=== PATIENT | male | born 1970 | race Caucasian/White ===

== ENCOUNTER 2016-06-11 19:12 | Emergency (ER) | payer BC ==
[~2016-06-11] VITALS: Ht 182.9 cm; Wt 88.6 kg
[2016-06-11 19:19] VITALS: Ht 182.9 cm; Wt 88.6 kg
[2016-06-11] MEDS ORDERED: SODIUM CHLORIDE 0.9% 1000ML 1,000 ML IV STA (20:37)
[2016-06-11] MEDS ORDERED: SODIUM CHLORIDE 0.9% 1000ML 1,000 ML IV ONE (20:37)
--- NOTE | 2016-06-11 20:43 | EMERGENCY ROOM VISIT NOTE ---
History Report prepared by Debra: Pradeep Munroe Under the Supervision of: Dr. Pradeep Koch M.D. First contact with patient: 20:29 Chief Complaint: FOOD BOLUS Stated Complaint: FOOD LODGED IN THROAT SINCE 5AM Nursing Triage Summary: hot dog stuck in throat since 0500 was able to swallow so he ate a banana at noon now it seems worse. History of Present Illness The patient is a 45 year old male who presents to the Emergency Room with complaints of an episode of food bolus occurring about 15 hours ago. He notes he was eating a hotdog with eggs and it became stuck after only a few bites. He tried eating a banana to force it down but this made it worse. He notes he gets short of breath when phlegm builds up and gags every 10 minutes. He adds he gaged up some hotdog about 7 hours ago. The patient reports he has had a scope and swallowing test done 2 years ago at [facility], and it was noted that his muscles in his esophageal region become "lazy" causing food to become stuck. He denies taking any blood thinners. No trauma or injury. No chest pain. No fever or chills. No recent illness. Source of History: patient Onset: about 15 hours ago Position: throat Quality: other (food bolus) Timing: other (episode) Modifying Factors (Relieving): other (eating a banana) Associated Symptoms: + SOB Review of Systems See HPI for pertinent positives & negatives. A total of 10 systems reviewed and were otherwise negative. Past Medical & Surgical Old medical records were reviewed. Nurse's notes were reviewed and I agree with. He is a previous esophageal problems but never been acutely scoped for this Family History No pertinent family history stated. Social History Smoking Status: Never Smoker Drug Use: none Marital Status: Current/Historical Medications Scheduled Finasteride (Propecia ), 1 MG PO QAM Multivitamin (Multivitamin), 1 TAB PO QAM Trazodone HCl (Trazodone HCl), 150 MG PO HS Scheduled PRN Ibuprofen (Advil), 400 MG PO Q6 PRN for Pain Allergies Coded Allergies: Penicillins (Unverified Allergy, Unknown, UNKNOWN, 06/11/16) Physical Exam Vital Signs Date Time Temp Pulse Resp B/P Pulse Ox O2 Delivery O2 Flow Rate FiO2 06/12/16 00:00 36.6 72 16 142/105 98 06/11/16 23:50 36.5 76 16 162/103 98 06/11/16 23:40 36.5 78 20 142/98 96 06/11/16 23:30 36.4 80 16 137/98 94 Room Air 80 06/11/16 23:25 36.5 80 20 153/95 96 Room Air 06/11/16 23:15 36.4 83 24 128/109 95 Room Air 06/11/16 23:05 36.5 79 16 143/90 98 Nasal Cannula 2 06/11/16 22:55 87 16 141/98 99 Nasal Cannula 2 06/11/16 22:49 36.1 90 16 138/92 98 Mask 10 06/11/16 21:00 84 16 140/98 97 Room Air 06/11/16 19:19 36.7 101 18 147/97 97 Room Air Physical Exam General: Non ill appearing middle aged male appearing in no acute distress except for occasionally bringing up phlegm and becoming unable to swallow. No respiratory distress. HEENT: Normal cephalic atraumatic. Pupils are equal round and reactive to light. Extraocular movements are intact. Oropharynx is pink with moist mucous membranes. No swelling of the mouth lips or tongue. Neck: Supple with a midline trachea. No meningeal signs or stiffness, no JVD or bruits. No Stridor. Chest: Clear to auscultation bilaterally. No wheezes or rhonchi. No increased work of breathing. Heart: regular rate and rhythm. Abdomen: Soft nontender, nondistended without rebound guarding or rigidity. Extremities: No cyanosis clubbing or edema. No calf tenderness or assymetry Spine/Back. Non tender to palpation. No CVA tenderness Skin: Good turgor without rashes. Neurologic exam: Cranial nerves two through 12 are intact. Motor and sensation are intact and symmetrical throughout. Medical Decision & Procedures Laboratory Results 06/11/16 20:55 Red Blood Count 5.17, Mean Corpuscular Volume 89.2, Mean Corpuscular Hemoglobin 32.7, Mean Corpuscular Hemoglobin Concent 36.7, Mean Platelet Volume 9.1, Neutrophils (%) (Auto) 66.8, Lymphocytes (%) (Auto) 23.2, Monocytes (%) (Auto) 9.6, Eosinophils (%) (Auto) 0.1, Basophils (%) (Auto) 0.1, Neutrophils # (Auto) 6.48, Lymphocytes # (Auto) 2.25, Monocytes # (Auto) 0.93, Eosinophils # (Auto) 0.01, Basophils # (Auto) 0.01 06/11/16 20:55 Test 06/11/16 20:55 White Blood Count 9.70 K/uL (4.8-10.8) Red Blood Count 5.17 M/uL (4.7-6.1) Hemoglobin 16.9 g/dL (14.0-18.0) Hematocrit 46.1 % (42-52) Mean Corpuscular Volume 89.2 fL (80-100) Mean Corpuscular Hemoglobin 32.7 pg (25-34) Mean Corpuscular Hemoglobin Concent 36.7 g/dl (32-36) Platelet Count 232 K/uL (130-400) Mean Platelet Volume 9.1 fL (7.4-10.4) Neutrophils (%) (Auto) 66.8 % Lymphocytes (%) (Auto) 23.2 % Monocytes (%) (Auto) 9.6 % Eosinophils (%) (Auto) 0.1 % Basophils (%) (Auto) 0.1 % Neutrophils # (Auto) 6.48 K/uL (1.4-6.5) Lymphocytes # (Auto) 2.25 K/uL (1.2-3.4) Monocytes # (Auto) 0.93 K/uL (0.11-0.59) Eosinophils # (Auto) 0.01 K/uL (0-0.5) Basophils # (Auto) 0.01 K/uL (0-0.2) RDW Standard Deviation 41.2 fL (36.4-46.3) RDW Coefficient of Variation 12.7 % (11.5-14.5) Immature Granulocyte % (Auto) 0.2 % Immature Granulocyte # (Auto) 0.02 K/uL (0.00-0.02) Anion Gap 11.0 mmol/L (3-11) Est Creatinine Clear Calc Drug Dose 87.1 ml/min Estimated GFR () 85.3 Estimated GFR (Non- 73.6 BUN/Creatinine Ratio 11.9 (10-20) Calcium Level 9.3 mg/dl (8.5-10.1) Laboratory studies as stated above per my review. Medications Administered Medications (Trade) Dose Ordered Sig/Asha Route Start Time Stop Time Status Last Admin Dose Admin Sodium Chloride 1,000 ml @ 999 mls/hr Q1H1M STAT IV 06/11/16 20:37 06/11/16 21:37 DC 06/11/16 20:37 999 MLS/HR Sodium Chloride (Nss 1000ml) 1,000 ml @ 150 mls/hr Q6H40M ONCE IV 06/11/16 20:37 06/12/16 03:16 06/11/16 20:37 150 MLS/HR Glucagon (Glucagon Inj) 1 mg NOW STAT IV 06/11/16 20:48 06/11/16 20:49 DC 06/11/16 20:48 1 MG ED Course 2029: Past medical records reviewed. The patient was evaluated in room C3, and a complete history and physical examination were performed. 2036: Ordered NSS 1,000 ml @ 150 mls/hr IV, and NSS 1,000 ml @ 999 mls/hr IV. 2046: I spoke with Dr. Garnica about the patient's case and it was recommended that I give glucagon. Dr. Garnica will see the patient at bedside. 2047: Ordered Glucagon 1 mg IV. 2244: Upon reevaluation, the patient is doing well. I discussed the results and treatment plan with the patient. He verbalized agreement of the treatment plan. The patient was discharged home. Medical Decision Differentials include food bolus, GERD, infection, and electrolyte or metabolic abnormality. This patient comes in as described above he has symptoms very consistent with a food bolus/impaction. This is been going on for about 17 hours. He looks well except for when I c had him try to swallow water and it immediately comes back up and he is also spitting intermittently. He appears in no respiratory distress. IV access established, blood work was ordered and ordered glucagon 1 mg IV. I also consulted Dr. Garnica. He did call the endoscopy lab and promptly came in and took the patient endoscopy lab for scoping and removal of the food bolus. The patient has no acute electrolyte or metabolic abnormalities. He was hydrated with IV normal saline and He was transferred to the endoscopy suite Consults Time Called: 2044 Consulting Physician: Dr. Garnica Returned Call: [address] Garnica about the patient's case and it was recommended that I give glucagon. Dr. Garnica will see the patient at bedside. Impression Primary Impression: Food impaction of esophagus Scribe Attestation The scribe's documentation has been prepared under my direction and personally reviewed by me in its entirety. I confirm that the note above accurately reflects all work, treatment, procedures, and medical decision making performed by me. Departure Information Dispostion Home / Self-Care Patient Instructions My [facility]
[2016-06-11] MEDS ORDERED: GLUCAGON FOR INJ 1 MG VIAL IV STA (20:48)
[2016-06-11 21:00] VITALS: O2SAT 97
[2016-06-11] MEDS ORDERED: PRSC1 PO (21:07)
[2016-06-11] MEDS ORDERED: MULT-506 PO (21:07)
[2016-06-11] MEDS ORDERED: DSY/150 PO (21:07)
[2016-06-11] MEDS ORDERED: IBUP-1050 PO (21:07)
[2016-06-11 21:08] LABS: BASO % 0.1 %; BASO ABS # 0.01 K/uL (0-0.2); COMPLETE YES; EOS % 0.1 %; HEMATOCRIT 46.1 % (42-52); IG% 0.2 %; LYMPH % 23.2 %; LYMPH ABS # 2.25 K/uL (1.2-3.4); MEAN CELL VOLUME 89.2 fL (80-100); MEAN CORPUSCULAR HEMOGLOBIN 32.7 pg (25-34); MEAN CORPUSCULAR HGB CONC 36.7 g/dl (32-36); MEAN PLATELET VOLUME 9.1 fL (7.4-10.4); MONO % 9.6 %; NEUT % 66.8 %; PLATELET COUNT 232 K/uL (130-400); RED BLOOD COUNT 5.17 M/uL (4.7-6.1)
[2016-06-11 21:25] LABS: BUN/CREATININE RATIO 11.9 (10-20); CALCIUM 9.3 mg/dl (8.5-10.1); CREATININE 1.2 mg/dl (0.60-1.40); POTASSIUM 3.7 mmol/L (3.5-5.1)
[2016-06-11] MEDS ORDERED: FLUMAZENIL 0.1 MG/1 ML 10 ML VIAL IV PRN (21:45)
[2016-06-11] MEDS ORDERED: LABETALOL HCL IV 5 MG/ML 20ML IV PRN (21:45)
[2016-06-11] MEDS ORDERED: MEPERIDINE HCL 25 MG/ML CARP IV PRN (21:45)
[2016-06-11] MEDS ORDERED: FENTANYL CITRATE INJ 50 MCG/1 ML 2 ML VIAL IV PRN (21:45)
[2016-06-11] MEDS ORDERED: HYDROmorphone INJ 2 MG/ML SYR/VIAL IV PRN (21:45)
[2016-06-11] MEDS ORDERED: ONDANSETRON INJ 2 MG/ML 2 ML VIAL IV PRN ×2 (21:45→23:00)
[2016-06-11] MEDS ORDERED: ATROPINE SULFATE 0.1 MG/ML 5ML SYR IV PRN (21:45)
[2016-06-11] MEDS ORDERED: EpHEDrine SULFATE INJ 50 MG/ML AMP IV PRN (21:45)
[2016-06-11] MEDS ORDERED: NALOXONE HCL 0.4 MG/1 ML VIAL/CARP IV PRN (21:45)
[2016-06-11] MEDS ORDERED: PHENYLEPHRINE 100MCG/ML 5ML SYR IV PRN (21:45)
[2016-06-11] MEDS ORDERED: MIDAZOLAM HCL 1 MG/ML 2ML VIAL ONE (21:49)
--- NOTE | 2016-06-11 21:49 | Medical Consult ---
Consultation Date of Consultation: Jun 11, 2016. Attending Physician: DR HILARY ERNST Reason for Consultation: FOOD IMPACTION History of Present Illness The patient is a 45 year old male who presents ED to the Emergency Room with complaints of an episode of food bolus occurring about 15 hours ago (0500). He notes he was eating a hotdog with eggs and it became stuck after only a few bites. He notes he gets short of breath when phlegm builds up and gags every 10 minutes. He adds that he gaged up some hotdog about 7 hours ago. He had a prior EGD for intermitant dysphagia in [address] Martínez, empiric dilation was performed. He reports having intermitant dysphagia over the past few years, last evaluation in 2011. Past Medical/Surgical History GERD Hypertension Insomnia Social History Smoking Status: Never Smoker Smokeless Tobacco Use: No Alcohol Use: socially Drug Use: none Marital Status: Occupation Status: employed Allergies Coded Allergies: Penicillins (Unverified Allergy, Unknown, UNKNOWN, 06/11/16) Home Medications Reported Home Medications Medications Dose Route/Sig Max Daily Dose Days Date Category Multivitamin (Multivitamins) Tab 1 Tab PO QAM 06/11/16 Reported Advil (Ibuprofen) 200 Mg Tab 400 Mg PO Q6 PRN 06/11/16 Reported Trazodone HCl 150 Mg Tab 150 Mg PO HS 06/11/16 Reported Propecia (Finasteride) 1 Mg Tab 1 Mg PO QAM 06/11/16 Reported Current Inpatient Medications Current Inpatient Medications Medications (Trade) Dose Ordered Sig/Asha Route Start Time Stop Time Status Last Admin Dose Admin Sodium Chloride 1,000 ml @ 999 mls/hr Q1H1M STAT IV 06/11/16 20:37 06/11/16 21:37 06/11/16 20:37 999 MLS/HR Sodium Chloride (Nss 1000ml) 1,000 ml @ 150 mls/hr Q6H40M ONCE IV 06/11/16 20:37 06/12/16 03:16 06/11/16 20:37 150 MLS/HR Review of Systems Constitutional: No chills, No fatigue, No weight loss Eyes: No eye pain ENT: No unusual epistaxis Respiratory: No shortness of breath, No sputum Cardiovascular: No edema, No orthopnea, No palpitations Abdomen: No GI bleeding, No diarrhea, No nausea Musculoskeletal: No muscle pain, No swelling Genitourinary - Male: No dysuria, No lesions, No urinary hesitancy Psychiatric: No anhedonism, No anxiety, No substance abuse Endocrine: No excessive thirst Hematologic / Lymphatic: No clotting problems, No problem reported Integumentary: No bleeding, No itch Physical Exam Date Time Temp Pulse Resp B/P Pulse Ox O2 Delivery O2 Flow Rate FiO2 06/11/16 21:00 84 16 140/98 97 Room Air 06/11/16 19:19 36.7 101 18 147/97 97 Room Air General Appearance: no apparent distress Head: normocephalic, atraumatic Eyes: PERRL ENT: pharynx normal Neck: supple, no JVD Respiratory/Chest: lungs clear Cardiovascular: regular rate, rhythm Abdomen/GI: normal bowel sounds, non tender, soft Extremities/Musculoskelatal: normal inspection Neurologic/Psych: oriented x 3 Skin: no rash Lymphatic: no adenopathy Laboratory Results Last 24 Hours Test 06/11/16 20:55 White Blood Count 9.70 K/uL Red Blood Count 5.17 M/uL Hemoglobin 16.9 g/dL Hematocrit 46.1 % Mean Corpuscular Volume 89.2 fL Mean Corpuscular Hemoglobin 32.7 pg Mean Corpuscular Hemoglobin Concent 36.7 g/dl Platelet Count 232 K/uL Mean Platelet Volume 9.1 fL Neutrophils (%) (Auto) 66.8 % Lymphocytes (%) (Auto) 23.2 % Monocytes (%) (Auto) 9.6 % Eosinophils (%) (Auto) 0.1 % Basophils (%) (Auto) 0.1 % Neutrophils # (Auto) 6.48 K/uL Lymphocytes # (Auto) 2.25 K/uL Monocytes # (Auto) 0.93 K/uL Eosinophils # (Auto) 0.01 K/uL Basophils # (Auto) 0.01 K/uL RDW Standard Deviation 41.2 fL RDW Coefficient of Variation 12.7 % Immature Granulocyte % (Auto) 0.2 % Immature Granulocyte # (Auto) 0.02 K/uL Sodium Level 141 mmol/L Potassium Level 3.7 mmol/L Chloride Level 105 mmol/L Carbon Dioxide Level 25 mmol/L Anion Gap 11.0 mmol/L Blood Urea Nitrogen 14 mg/dl Creatinine 1.20 mg/dl Est Creatinine Clear Calc Drug Dose 87.1 ml/min Estimated GFR () 85.3 Estimated GFR (Non- 73.6 BUN/Creatinine Ratio 11.9 Random Glucose 111 mg/dl Calcium Level 9.3 mg/dl Assessment & Plan Patient presented with a food impaction refractory to glucagon in ER. Will plan for EGD today for disimpaction. We have discussed the risks to include bleeding, infection, perforation, pain, infection, aspiration, and need for f/u procedures. Plan EGD today omeprazole 20 mg twice daily for 4 weeks then 1 time daily thereafter
[2016-06-11] MEDS ORDERED: FENTANYL CITRATE INJ 50 MCG/1 ML 2 ML VIAL ONE (21:50)
[2016-06-11] MEDS ORDERED: ONDANSETRON INJ 2 MG/ML 2 ML VIAL ONE (22:12)
[2016-06-11] MEDS ORDERED: SUCCINYLCHOLINE CHLORIDE 20 MG/ML 10 ML VIAL IV ONE (22:12)
[2016-06-11] MEDS ORDERED: DEXAMETHASONE SOD INJ 4 MG/ML VIAL ONE (22:12)
[2016-06-11] MEDS ORDERED: PROPOFOL IV EMULSION 10 MG/ML 20 ML VIAL IV ONE (22:12)
--- NOTE | 2016-06-11 22:48 | GI REPORT ---
Procedure Date: 06/11/2016 9:51 PM Procedure: Upper GI endoscopy Indications: Foreign body in the esophagus Medicines: General Anesthesia Complications: No immediate complications. Estimated blood loss: Minimal. Estimated Blood Loss: Estimated blood loss was minimal. Procedure: Pre-Anesthesia Assessment: - Prior to the procedure, a History and Physical was performed, and patient medications, allergies and sensitivities were reviewed. The patient's tolerance of previous anesthesia was reviewed. - The risks and benefits of the procedure and the sedation options and risks were discussed with the patient. All questions were answered and informed consent was obtained. - Patient identification and proposed procedure were verified prior to the procedure by the physician, the nurse and the methods analyst. The procedure was verified in the procedure room. - Pre-procedure physical examination revealed no contraindications to sedation. - ASA Grade Assessment: II - A patient with mild systemic disease. - After reviewing the risks and benefits, the patient was deemed in satisfactory condition to undergo the procedure. - The anesthesia plan was to use general anesthesia. - Immediately prior to administration of medications, the patient was re-assessed for adequacy to receive sedatives. - The heart rate, respiratory rate, oxygen saturations, blood pressure, adequacy of pulmonary ventilation, and response to care were monitored throughout the procedure. - The physical status of the patient was re-assessed after the procedure. After obtaining informed consent, the endoscope was passed under direct vision. Throughout the procedure, the patient's blood pressure, pulse, and oxygen saturations were monitored continuously. The Scope was introduced through the mouth, and advanced to the second part of duodenum. The patient tolerated the procedure well. The upper GI endoscopy was unusually difficult due to presence of food. Successful completion of the procedure was aided by performing the maneuvers documented (below) in this report. Findings: Food was found in the lower third of the esophagus. Removal of food was accomplished after much difficulty and over 35 minutes of procedure time. To remove the bolus we tried gentle pressure without success, then suction, and a grande retrieval net. As the bolus could not be disimpacted we "broke up" the bolus with rat tooth forceps and snare. The bolus was finally removed with a Grande net in numerous pieces. Estimated blood loss was minimal. Diffuse moderate mucosal changes characterized by tight circumferential folds and luminal narrowing were found in the entire esophagus. The entire examined stomach was normal. The examined duodenum was normal. Impression: - Food in the lower third of the esophagus. Removal was successful. - Tight circumferentially folded mucosa in the esophagus, may be consistent with EE. - Normal stomach. - Normal examined duodenum. Recommendation: - Discharge patient to home (ambulatory). - Full liquid diet for 3 days. - Use Prilosec (omeprazole) 40 mg PO BID for 2 weeks then 1 time daily. - Repeat the upper endoscopy in 2 weeks. Rita Garnica D.O. Rita Garnica, 06/11/2016 10:47:49 PM This report has been signed electronically. Note Initiated On: 06/11/2016 9:51 PM I attest to the content of the Intraoperative Record and orders documented therein, exceptions below
--- NOTE | 2016-06-11 22:53 | Anesthesiology Progress Note ---
Anesthesia Post Op Note Date & Time Jun 11, 2016 at 22:53 Vital Signs Pain Intensity: 0 Vital Signs Past 12 Hours Date Time Temp Pulse Resp B/P Pulse Ox O2 Delivery O2 Flow Rate FiO2 06/11/16 21:00 84 16 140/98 97 Room Air 06/11/16 19:19 36.7 101 18 147/97 97 Room Air Notes Mental Status: alert / awake / arousable, participated in evaluation Pt Amnestic to Procedure: Yes Nausea / Vomiting: adequately controlled Pain: adequately controlled Airway Patency, RR, SpO2: stable & adequate BP & HR: stable & adequate Hydration State: stable & adequate Anesthetic Complications: no major complications apparent
--- NOTE | 2016-06-11 22:54 | [facility] Post Operative Brief Note ---
Immediate Operative Summary Operative Date Jun 11, 2016. Pre-Operative Diagnosis Food Bolus Post-Operative Diagnosis Food Bolus Procedure(s) Performed Esophagogastroduodenoscopy Surgeon Dr. Granica Estimated Blood Loss 0ml Findings Food impaction in the esophagus Specimens None Anesthesia General Complication(s) None Disposition Recovery Room / PACU
--- NOTE | 2016-06-11 22:56 | Discharge Instructions ---
Endoscopy Patient Instructions Date / Procedure(s) Performed Jun 11, 2016. EGD Allergy Information Coded Allergies: Penicillins (Unverified Allergy, Unknown, UNKNOWN, 06/11/16) Discharge Date / Findings Jun 11, 2016. Food impaction of the esophagus Possible eosinophilic esophagitis Medication Instructions Reported Home Medications Medications Dose Route/Sig Max Daily Dose Days Date Category Multivitamin (Multivitamins) Tab 1 Tab PO QAM 06/11/16 Reported Advil (Ibuprofen) 200 Mg Tab 400 Mg PO Q6 PRN 06/11/16 Reported Trazodone HCl 150 Mg Tab 150 Mg PO HS 06/11/16 Reported Propecia (Finasteride) 1 Mg Tab 1 Mg PO QAM 06/11/16 Reported Provider Instructions Activity Restrictions - No exercising or heavy lifting for 24 hours. - Do not drink alcohol the day of the procedure. - Do not drive a car or operate machinery until the day after the procedure. - Do not make any important decisions or sign important papers in 24 hours after the procedure. Following Day: - Return to full activity which may include returning to work/school. Diet Full liquid diet for 3 days then advance as tolerated (avoid chicken, steak / meat, bread, leafy / fibrous vegtables) Treatment For Common After Affects For mild abdominal pain, bloating, or excessive gas: - Rest - Eat lightly - Lie on right side Follow-Up Information Start Omeprazole 40 mg twice daily for 2 weeks then 1 time daily thereafter Repeat EGD in 2 to 4 weeks Anesthesia Information What You Should Know You have had a procedure that required some medicine to reduce anxiety and discomfort. This treatment is called moderate sedation. After receiving the treatment, you may be sleepy, but you will be able to breathe on your own. The effects of the treatment may last for several hours. Follow these instructions along with Activity/Diet recommendations noted above: * Do NOT do anything where dizziness or clumsiness would be dangerous. * Rest quietly at home today, then you can be up and about tomorrow. * Have a responsible person stay with you the rest of today. * You may have had an I.V. today. If so, you may take the dressing off later today. Recommendations Call your doctor if: * Trouble breathing * Continuous vomiting for more than 24 hours * Temperature above 101 degrees * Severe abdominal pain or bloating * Pain not relieved by pain medicine ordered * There is increased drainage or redness from any incision * A large amount of rectal bleeding greater than 2-3 tablespoons. (If you had a polyp/s removed or have hemorrhoids, a small amount of blood - from the rectum is to be expected.) * You have any unanswered questions or concerns. IN THE EVENT OF A SERIOUS EMERGENCY, GO TO THE NEAREST EMERGENCY ROOM Your discharge instructions were prepared by provider Rita Garnica. Patient Instructions Signature Page Victor Manuel Nayak Patient (or Guardian) Signature/Date: I have read and understand the instructions given to me by my caregivers. Caregiver/RN/Doctor Signature/Date: The above-named patient and/or guardian has received patient instructions on this date. + Original Patient Signature Page (only) stays with chart. Please make copy for patient.
[2016-06-11 23:30] VITALS: BP 137/98; PULSE 80; TEMP 36.4; O2SAT 94
[2016-06-12] VITALS: BP 142/105; PULSE 72; TEMP 36.6; O2SAT 98
== END 2016-06-11 21:50 | disposition still patient (30) ==
LOC: C.EDB 19:13 → C.EDC 21:50
DX: T18.108A Unspecified foreign body in esophagus causing other injury, initial encounter (principal); X58.XXXA Exposure to other specified factors, initial encounter; K21.9 Gastro-esophageal reflux disease without esophagitis; I10 Essential (primary) hypertension